=== PATIENT | male | born 1965 | race Caucasian/White ===

== ENCOUNTER → 2017-03-11 | Outpatient (CLI) | payer OTHER ==
[~2017-03-11] MED LIST: GADOBUTROL 10 ML VIAL IVP ONE
== END ==
LOC: FIMAGING 16:56
PROVIDERS: ATTEND Nurse Practitioner Adult Health
DX: R29.818 Other symptoms and signs involving the nervous system (principal); R51 Headache; R20.2 Paresthesia of skin; J34.1 Cyst and mucocele of nose and nasal sinus
CPT/HCPCS: A9585